=== PATIENT | female | born 1960 | race Caucasian/White ===

== ENCOUNTER 2020-02-01 14:06 | Observation (INO) | payer SELFPAY ==
--- NOTE | 2020-02-01 15:44 | PDOC.FPRHP ---
- History of Present Illness Chief Complaint: Dizzy/Vertigo - History PMHx: PSHx: FHx: Social: - Vital signs BP: 175/103 (Sitting), MAP: 127, Pulse: 96, Resp: 18 (Non-Labored), Temp: 97.6 (Oral), Pain: 0, O2 sat: 98 on (Room Air), Time: 02/01/2020 14:08. FMR H&P: Upper Level - Plan Date/Time: 02/01/20 1544 I, [], have evaluated this patient and agree with findings/plan as outlined by fall internship resident. Pertinent changes/additions are listed here.
--- NOTE | 2020-02-01 16:13 | PDOC.FPRHP ---
- History of Present Illness Chief Complaint: Dizziness History of Present Illness: 59yo F pmhx of DM presents following episode of dizziness. Pt was driving to work and became dizzy and developed nausea and vomiting. Went to [facility] ED and had normal head CT and received meclizine and phenergan. Transferred here for concern of stroke and to have MRI done. Was hyperglycemic at outside ED to 500, did not received insulin but received IVF. Gap was 17 at that time. Prior to admission here pt was found to have positive ketones and a continued anion gap of 14. She was feeling overall much better with resolution of her symptoms. Pt only takes metformin and glipizide at home for her DM but admits that it is poorly managed - is resistant to insulin tx. - Allergies/Adverse Reactions Allergies Allergy/AdvReac Type Severity Reaction Status Date / Time No Known Allergies Allergy Unverified 02/01/20 18:43 - History PMHx: Diabetes, HTN, CKD3, kidney stones PSHx: Hysterectomy, appendectomy FHx: Paternal: skin cancer, CAD Social: Denies alcohol, tobacco, drugs - Review of Systems General: denies: fever/chills, weight/appetite/sleep changes Eyes: denies: eye pain, vision changes ENT: denies: nasal congestion, rhinorrhea Respiratory: denies: cough, congestion, shortness of breath Cardiovascular: denies: chest pain, palpitation, edema Gastrointestinal: reports: nausea, vomiting. denies: diarrhea Genitourinary: denies: incontinence, dysuria, polyuria, discharge Skin: denies: rashes, lesions Musculoskeletal: denies: pain, stiffness Neurological: reports: other (dizziness). denies: numbness Psychological: denies: anxiety, depression - Vital signs BP: 175/103 (Sitting), MAP: 127, Pulse: 96, Resp: 18 (Non-Labored), Temp: 97.6 (Oral), Pain: 0, O2 sat: 98 on (Room Air), - Physical Exam Constitutional: NAD, awake, alert and oriented, well developed HEENT: PERRLA, EOMI -HEENT: no nystagmus Neck: supple, FROM Heart: RRR, normal S1/S2 Lungs: CTAB, no respiratory distress Abdomen: soft, non-tender, bowel sounds present Musculoskeletal: normal structure, ROM grossly normal Neurological: normal sensation Skin: no rash/lesions, capillary refill <2 seconds -Skin: very dry skin Psychiatric: normal mood and affect, good judgment and insight, intact recent and remote memory FMR H&P: Results - Labs Result Diagrams: 02/01/20 16:23 FMR H&P: A/P - Plan Severe Hyperglycemia - Hypovolemia - Likely was borderline DKA ealier today with significant hypoglycemia - Improved with fluids prior to arrival - Resolution of symptoms PRESSER HAND - 5u regular insulin in ED, SSI insulin ACHS - IVF @ 175 CVA vs TIA vs BPPV vs Hypovolemia/DKA - CVA highly unlikely based on resolution of sx - neuro checks - Description of sx makes TIA very unlikely - Negative Hints exam - Hypovolemia 2/2 to hyperglycemia/DKA most likely cause of vertigo - BPPV less likely with negative exam unless resolved - Negative Kremlin-Hallpike - Will continue to monitor UTI - rocephin - infection may have precipitated near DKA VTE: SCD Diet: CC IVF: LR @ 170ml Code: Full PCP: Dr. Jeffries Dispo: Admit to stroke. Control hyperglycemia and treat UTI as most likely source of dizziness. Pt with currently resolved sx. ELOS <48hr. FMR H&P: Upper Level - Plan Date/Time: 02/01/20 1611
[2020-02-01 17:06] LABS: Anion Gap 18 mmol/L (10-20); BUN (Urea Nitrogen) 12 mg/dL (9.8-20.1); Calc. Creatinine Clearance 0 mL/min (70-130); Calcium 8.8 mg/dL (7.8-10.44); Carbon Dioxide 21 mmol/L (22-29); Chloride 103 mmol/L (98-107); Glucose 322 mg/dL (70-105); Potassium 4.4 mmol/L (3.5-5.1); Sodium 138 mmol/L (136-145)
[2020-02-01] MEDS ORDERED: Insulin Regular 300 UNITS/3 ML VIAL ONE (17:45)
[2020-02-01 17:46] LABS: Actual Bicarbonate (HCO3a) 20.1 mEq/L (22-28); Base Excess (BEa) -3.8 mEq/L (-2.0 to +3.0); CO2 Tension 33.3 mmHg (35.0-45.0); Calcium, Ionized (arterial) 1.15 mmol/L (1.12-1.30); Carboxyhemoglobin (COHb) 0.4 gm% (0.0-3.0); Hemoglobin (Hb) 13.9 g/dL (12.0-16.0); O2 Tension (PaO2), arterial 85.7 mmHg (80.0-100.0); Potassium - ABG Lab 4.55 mmol/L (3.70-5.30)
[2020-02-01 17:47] LABS: ALV-art Gradient 22.405 mmHg (0-20); Puncture Site RRA
[2020-02-01 18:29] VITALS: BMI 26.9
[2020-02-01] MEDS ORDERED: Ondansetron ODT 4 MG TAB PO PRN (19:22)
[2020-02-01] MEDS ORDERED: Ondansetron PF 4 MG/2 ML Vial IVP PRN (19:22)
[2020-02-01] MEDS ORDERED: Dextrose 5% in Water 1,000 ML IV PRN (19:22)
[2020-02-01] MEDS ORDERED: Dextrose 50% Abboject 50 ML SYRINGE SLOW IVP PRN (19:22)
[2020-02-01] MEDS ORDERED: Lactated Ringer's 1,000 ML IV SCH (19:45)
[2020-02-01] MEDS ORDERED: Aspirin Chewable 81 MG TAB PO SCH (20:00)
[2020-02-01] MEDS ORDERED: Atorvastatin Calcium 40 MG TAB PO SCH (21:00)
[2020-02-01 21:47] LABS: Anion Gap 17 mmol/L (10-20); BUN (Urea Nitrogen) 14 mg/dL (9.8-20.1); Calc. Creatinine Clearance 69 mL/min (70-130); Calcium 8.6 mg/dL (7.8-10.44); Carbon Dioxide 24 mmol/L (22-29); Chloride 100 mmol/L (98-107); Glucose 285 mg/dL (70-105); Potassium 3.9 mmol/L (3.5-5.1); Sodium 137 mmol/L (136-145)
[2020-02-01] MEDS: HumaLOG 300 UNITS/3 ML VIAL SC PRN (22:20)
[2020-02-02] MEDS: HumaLOG 300 UNITS/3 ML VIAL SC PRN ×4 (00:09→18:44)
[2020-02-02] MEDS ORDERED: Insulin Glargine 10 UNITS in Pre-Filled Syringe 1 EACH SC SCH (00:30)
[2020-02-02] MEDS: Sodium Chloride 0.9% 1,000 ML IV SCH ×2 (01:28→07:10)
[2020-02-02 05:26] LABS: #Basophils 0.1 thou/uL (0.0-0.2); #Eosinphils 0.2 thou/uL (0.0-0.7); #Lymphocytes 4.6 thou/uL (1.20-3.40); #Monocytes 0.6 thou/uL (0.11-0.59); #Neutrophils 6.4 thou/uL (1.40-6.50); %Basophils 0.8 % (0.0-1.0); %Eosinophils 2.1 % (0.0-10.0); %Lymphocytes 38.4 % (21.0-51.0); %Monocytes 4.9 % (0.0-10.0); %Neutrophils 53.8 % (42.0-75.0); Hemoglobin 13.3 g/dL (12.0-16.0); Mean Corpuscular Hemoglobin 30.7 pg (27.0-31.0); Mean Corpuscular Volume 90.3 fL (78.0-98.0); Mean Platelet Volume 8.1 fL (7.4-10.4); Platelet Count 268 thou/uL (130-400); RBC Distribution Width 11.8 % (11.5-14.5); Red Blood Cell (RBC) Count 4.32 mill/uL (4.20-5.40); White Blood Cell (WBC) Count 11.9 thou/uL (4.8-10.8)
[2020-02-02 05:30] LABS: Hemoglobin A1c 13.9 % (4.0-6.0)
[2020-02-02 05:48] LABS: Anion Gap 16 mmol/L (10-20); BUN (Urea Nitrogen) 15 mg/dL (9.8-20.1); Calc. Creatinine Clearance 76 mL/min (70-130); Calcium 8.4 mg/dL (7.8-10.44); Carbon Dioxide 23 mmol/L (22-29); Cardiac Risk 8.1 (Less than 4.5); Chloride 102 mmol/L (98-107); Cholesterol 325 mg/dl (< 200 Desired); Glucose 208 mg/dL (70-105); HDL Cholesterol 40 mg/dL (>60 Neg Risk); Potassium 3.7 mmol/L (3.5-5.1); Sodium 137 mmol/L (136-145); Triglycerides 417 mg/dL (Less than 150)
--- NOTE | 2020-02-02 06:43 | PDOC.FM ---
- Subjective Subjective: Pt resting in bed this AM. No acute events overnight. - Objective Vital Signs & Weight: Vital Signs (12 hours) Temp Pulse Resp BP Pulse Ox 02/02/20 04:00 98.4 F 81 18 154/75 H 99 02/02/20 00:00 98.2 F 89 18 159/88 H 98 02/01/20 19:37 98.3 F 97 16 167/87 H 98 Weight Weight 75.614 kg I&O: 01/31/20 02/01/20 02/02/20 06:59 06:59 06:59 Intake Total 700 Balance 700 Result Diagrams: 02/02/20 04:33 02/02/20 04:33 Phys Exam - Physical Examination Constitutional: NAD HEENT: moist MMs Neck: supple Respiratory: no wheezing, no rales, no rhonchi, clear to auscultation bilateral Cardiovascular: RRR, no significant murmur, no rub Gastrointestinal: soft, non-tender, no distention, positive bowel sounds Neurological: non-focal, normal sensation, moves all 4 limbs Dx/Plan - Plan Plan: ##Intractable N/V and Vertigo 2/2 Hypovolemia 2/2 Hyperglycemia - Was in mild DKA yesterday, now AG is closed. Glucoses are now below 250s. - Pt has had resolution of symptoms - Was given lantus 10U last night - Will need to determine outpatient regimen for patient - A1C 13.6 - Do not believe that patient's symptoms were related to CVA vs. TIA as patient has not had abnormal neurological exam. Normal PE for me this AM. D/cd stroke protocol and NIH scale. ##HLD and Hypertriglyceridemia -Noted on lipid panel -Pt started on statin ##UTI - rocephin given in the ED - infection may have precipitated near DKA - Ucx pending - Will have to send pt on home abx VTE: SCD Diet: CC Code: FULL PCP: Dr. Jeffries Dispo as of 02/01: Have tighter control on BG this AM. Will discuss what patient's home regimen shall be with the team. Patient's symptoms have resolved.
[2020-02-02] MEDS ORDERED: metFORMIN 500 MG TAB PO SCH (09:00)
[2020-02-02] MEDS ORDERED: Insulin Glargine 5 UNITS in Pre-Filled Syringe 1 EACH SC SCH (09:00)
[2020-02-02] MEDS ORDERED: Aspirin 81 mg Enteric Coated Tablet PO SCH (09:00)
[2020-02-02] MEDS ORDERED: Cephalexin 250 MG CAP PO SCH ×2 (11:45→21:00)
[2020-02-02] MEDS ORDERED: cefTRIAXone\\ROCEPHIN 1 GM in Sodium Chloride 0.9% 100 ML IVPB SCH (12:00)
[2020-02-02 16:04] VITALS: BP 145/85; TEMP 98.8
[2020-02-02] MEDS ORDERED: NPH, Human Insulin Isophane 300 UNIT/3 ML VIAL SC SCH (17:00)
[2020-02-02] MEDS ORDERED: Insulin Glargine 4 UNITS in Pre-Filled Syringe SC SCH (17:00)
[2020-02-03] MEDS ORDERED: NPH, Human Insulin Isophane 300 UNIT/3 ML VIAL SC SCH (08:00)
--- NOTE | 2020-02-05 16:35 | DIS ---
DATE OF ADMISSION: 02/01/2020 DATE OF DISCHARGE: 02/02/2020 RESIDENT: Juanita Al DO ADMITTING ATTENDING: Miguelito Leon MD DISCHARGE ATTENDING: Miguelito Leon MD CONSULTS: None. PROCEDURES: Brain CT done on 01/31 at an outlying facility showed no intracranial hemorrhage or displaced calvarial fracture. PRIMARY DIAGNOSES: Severe hyperglycemia/hypovolemia, mild diabetic ketoacidosis, urinary tract infection. SECONDARY DIAGNOSES: None. DISCHARGE MEDICATIONS: 1. Losartan/hydrochlorothiazide 50 mg/12.5 mg two tablets p.o. daily. 2. Metformin 1000 mg p.o. b.i.d. 3. Glipizide 5 mg p.o. daily. 4. Aspirin 81 mg p.o. daily. 5. Keflex 500 mg p.o. b.i.d. for 5 days. 6. Atorvastatin 40 mg p.o. at bedtime. 7. NPH 8 units in the morning and 4 units in the evening. DISCONTINUED MEDICATIONS: 1. Metformin 500 b.i.d. 2. Losartan/hydrochlorothiazide 1 tablet daily. HISTORY OF PRESENT ILLNESS/HOSPITAL COURSE: This is a 59-year-old female with a past medical history of diabetes who presented with an episode of dizziness at work. She developed nausea and vomiting along with the dizziness. She went to [place] ED and had a normal head CT and received meclizine and phenergan. She was transferred here for concern of stroke and to have an MRI done. The patient was found to be hyperglycemic at outside ED with blood sugars in the 500s. She did not receive insulin, but received IV fluids. Her anion gap was 17 at that time. Prior to admission to here, the patient was found to have ketones and a continued slight anion gap of 14. Overall, she was feeling much better with resolution of her dizziness and nausea and vomiting. Her symptoms were decided to be due to mild DKA and not a stroke so an MRI was not warranted. Of note, the patient only takes metformin and glipizide at home for diabetes, but admits that it is poorly managed. The patient was also found to have a A1c of 13.9, suggesting the patient would definitely need to be on insulin outpatient. As the patient was self-pay, we started her on NPH with the dosing as shown above. We recommended close outpatient followup with her PCP as she will most likely need adjustments to her NPH dosing. She was also found to have UTI with mild sxs. She was sent home on keflex pending urine cultures. DISPOSITION: Stable. DISCHARGE INSTRUCTIONS: 1. Location: Home. 2. Diet: Carb consistent. 3. Activity as tolerated. 4. Follow up in 7 to 10 days with PCP. Job ID: [id number] MTDD
== END 2020-02-02 19:45 | disposition home or self-care (01) ==
LOC: ERS 14:06 → 2SE 16:14
PROVIDERS: ADMIT Family Medicine; ATTEND Family Medicine
DX: I12.9 Hypertensive chronic kidney disease with stage 1 through stage 4 chronic kidney disease, or unspecified chronic kidney disease (principal); E11.22 Type 2 diabetes mellitus with diabetic chronic kidney disease; E11.10 Type 2 diabetes mellitus with ketoacidosis without coma; E11.65 Type 2 diabetes mellitus with hyperglycemia; N18.30 Chronic kidney disease, stage 3 unspecified; E86.1 Hypovolemia; N39.0 Urinary tract infection, site not specified; E78.5 Hyperlipidemia, unspecified; E78.1 Pure hyperglyceridemia; Z79.84 Long term (current) use of oral hypoglycemic drugs
CPT/HCPCS: 36415; 36416; 36600; 80048; 80061; 82010; 82805; 83036; 85025; 96374; G0378; J1815

== ENCOUNTER 2021-09-06 12:39 | Inpatient (IN) | payer SELFPAY ==
[2021-09-06 13:51] LABS: #Basophils 0.1 thou/uL (0.0-0.2); #Eosinphils 0.1 thou/uL (0.0-0.7); #Lymphocytes 3.9 thou/uL (1.20-3.40); #Monocytes 0.6 thou/uL (0.11-0.59); #Neutrophils 7.2 thou/uL (1.40-6.50); %Basophils 0.5 % (0.0-1.0); %Monocytes 4.8 % (0.0-10.0); %Neutrophils 60.8 % (42.0-75.0); Hemoglobin 15.5 g/dL (12.0-16.0); Mean Corpuscular HGB CONC 32.8 g/dL (32.0-36.0); Mean Corpuscular Hemoglobin 29.8 pg (27.0-31.0); Mean Platelet Volume 8.2 fL (7.4-10.4); Platelet Count 310 thou/uL (130-400); RBC Distribution Width 11.9 % (11.5-14.5); Red Blood Cell (RBC) Count 5.19 mill/uL (4.20-5.40); White Blood Cell (WBC) Count 11.8 thou/uL (4.8-10.8)
[2021-09-06] MEDS ORDERED: Labetalol HCl 100 MG/20 ML VIAL ONE (14:07)
[2021-09-06] MEDS ORDERED: Aspirin 325 MG TAB ONE (14:07)
[2021-09-06 14:11] LABS: ALT (SGPT) 11 U/L (8-55); AST (SGOT) 11 U/L (5-34); Albumin 4.1 g/dL (3.5-5.0); Alkaline Phosphatase 123 U/L (40-110); Anion Gap 23 mmol/L (10-20); BUN (Urea Nitrogen) 19 mg/dL (9.8-20.1); Bilirubin, Total 0.7 mg/dL (0.2-1.2); Calc. Creatinine Clearance 0 mL/min (70-130); Calcium 10.2 mg/dL (7.8-10.44); Carbon Dioxide 20 mmol/L (22-29); Chloride 97 mmol/L (98-107); Estimated GFR 43; Globulin 3.9 g/dL (2.4-3.5); Glucose 447 mg/dL (70-105); Potassium 4.5 mmol/L (3.5-5.1); Sodium 135 mmol/L (136-145)
[2021-09-06 14:35] LABS: INR-International Normal Ratio 0.9
[2021-09-06 14:36] LABS: PTT 21.4 sec (22.9-36.1)
[2021-09-06 14:40] LABS: Magnesium 1.5 mg/dL (1.6-2.6)
[2021-09-06 14:44] LABS: Actual Bicarbonate (HCO3v) 25 mEq/L (22-28); Base Excess -0.6 mEq/L (-2.0 to +3.0); Calcium, Ionized (venous) 1.15 mmol/L (1.16-1.32); Chloride (VBG) 98 mmol/L (98-106); Hemoglobin (Hb) 15.6 g/dL (11.7-16.0); Potassium (VBG) 3.91 mmol/L (3.70-5.30); pH (venous) 7.38 (7.32-7.43)
[2021-09-06] MEDS ORDERED: Insulin Regular 300 UNITS/3 ML VIAL ONE (14:57)
[2021-09-06] MEDS ORDERED: Magnesium 2 GM/50 ML BAG (IN WATER) ONE (14:58)
[2021-09-06 17:07] VITALS: BMI 27.6
[2021-09-06] MEDS ORDERED: Acetaminophen 325 MG TAB PO PRN (17:30)
[2021-09-06] MEDS ORDERED: Ondansetron ODT 4 MG TAB SL PRN (17:30)
[2021-09-06] MEDS ORDERED: Ondansetron PF 4 MG/2 ML Vial IVP PRN (17:30)
[2021-09-06 17:37] LABS: Troponin I Less than 0.010 ng/mL (< 0.028)
[2021-09-06] MEDS ORDERED: Dextrose 5% in Water 1,000 ML IV PRN (17:46)
[2021-09-06] MEDS ORDERED: Dextrose 50% Abboject 50 ML SYRINGE SLOW IVP PRN (17:46)
[2021-09-06] MEDS ORDERED: Senokot S 8.6-50 MG TAB PO PRN (17:51)
[2021-09-06] MEDS ORDERED: Magnesium Sulfate In Water 4 GM in Premix Bag 1 BAG IVPB SCH (18:30)
[2021-09-06 18:35] LABS: Hemoglobin A1c Greater than 14.0 % (4.0-6.0)
[2021-09-06 19:16] LABS: Troponin I Less than 0.010 ng/mL (< 0.028)
[2021-09-06] MEDS: Sodium Chloride 0.9% 1,000 ML IV SCH (19:16)
[2021-09-06] MEDS: Atorvastatin Calcium 40 MG TAB PO SCH ×2 (20:30→20:31)
[2021-09-06] MEDS: HumaLOG 300 UNITS/3 ML VIAL SC PRN (20:30)
[2021-09-06] MEDS: Insulin Glargine 30 UNITS/0.3 ML VIAL SC SCH (20:31)
[2021-09-07 05:10] LABS: #Basophils 0.1 thou/uL (0.0-0.2); #Eosinphils 0.3 thou/uL (0.0-0.7); #Lymphocytes 5.8 thou/uL (1.20-3.40); #Monocytes 0.7 thou/uL (0.11-0.59); #Neutrophils 5.4 thou/uL (1.40-6.50); %Basophils 0.8 % (0.0-1.0); %Eosinophils 2.1 % (0.0-10.0); %Lymphocytes 47.3 % (21.0-51.0); %Monocytes 5.6 % (0.0-10.0); %Neutrophils 44.2 % (42.0-75.0); Hemoglobin 14.2 g/dL (12.0-16.0); Mean Corpuscular HGB CONC 32.8 g/dL (32.0-36.0); Mean Corpuscular Volume 91.3 fL (78.0-98.0); Mean Platelet Volume 8.2 fL (7.4-10.4); Platelet Count 277 thou/uL (130-400); RBC Distribution Width 11.9 % (11.5-14.5); Red Blood Cell (RBC) Count 4.74 mill/uL (4.20-5.40); White Blood Cell (WBC) Count 12.3 thou/uL (4.8-10.8)
[2021-09-07 05:27] LABS: Anion Gap 14 mmol/L (10-20); BUN (Urea Nitrogen) 17 mg/dL (9.8-20.1); Calc. Creatinine Clearance 68 mL/min (70-130); Calcium 9.2 mg/dL (7.8-10.44); Carbon Dioxide 24 mmol/L (22-29); Cardiac Risk 8.6 (Less than 4.5); Chloride 103 mmol/L (98-107); Cholesterol 354 mg/dl (< 200 Desired); Estimated GFR 65; Glucose 203 mg/dL (70-105); HDL Cholesterol 41 mg/dL (>60 Neg Risk); Magnesium 1.5 mg/dL (1.6-2.6); Potassium 3.5 mmol/L (3.5-5.1); Sodium 137 mmol/L (136-145); Triglycerides 463 mg/dL (Less than 150)
[2021-09-07] MEDS ORDERED: Electrolyte Replacement Protocol 1 EACH FS SCH (05:45)
[2021-09-07] MEDS ORDERED: Acetaminophen 325 MG TAB PO PRN (06:40)
[2021-09-07] MEDS ORDERED: EPINEPHrine 1 MG/ML AMP ONE (08:12)
[2021-09-07] MEDS ORDERED: diphenhydrAMINE 50 MG/ML VIAL ONE (08:12)
[2021-09-07] MEDS ORDERED: EPINEPHrine 1 MG/10 ML Abboject SYRINGE ONE ×2 (08:12→08:31)
[2021-09-07] MEDS ORDERED: EPINEPHrine 1 mg/ml MDV (1ml Charge) IM PRN (08:28)
[2021-09-07] MEDS ORDERED: methylPREDNISolone Sod Succ 40 MG VIAL ONE (08:32)
[2021-09-07] MEDS: Famotidine/PF 20 mg/2ml Vial SLOW IVP SCH ×2 (08:34→21:41)
[2021-09-07] MEDS: methylPREDNISolone Sod Succ/PF 125 MG/2 ML VIAL IVP SCH (08:34)
[2021-09-07] MEDS ORDERED: Magnesium 2 GM/50 ML(in water) 2 GM in Premix Bag 1 BAG IVPB SCH (09:00)
[2021-09-07] MEDS ORDERED: Aspirin 81 mg Enteric Coated Tablet PO SCH (09:00)
[2021-09-07] MEDS ORDERED: Potassium Chloride 20 MEQ TAB PO SCH (09:00)
[2021-09-07] MEDS: Sodium Chloride 0.9% 1,000 ML IV SCH (11:13)
[2021-09-07] MEDS: Aspirin 81 mg Enteric Coated Tablet PO SCH (11:14)
[2021-09-07] MEDS: HumaLOG 300 UNITS/3 ML VIAL SC PRN ×3 (12:18→21:42)
[2021-09-07] MEDS ORDERED: Iopamidol 370 76% 100 ML VIAL ONE (15:16)
[2021-09-07 17:08] LABS: Free T4 (Free Thyroxine) 1.17 ng/dL (0.70-1.48); Thyroid Stimulating Hormone 1.5993 uIU/mL (0.35-4.94)
[2021-09-07 18:30] LABS: Hemoglobin A1c Greater than 14.0 % (4.0-6.0)
[2021-09-07] MEDS: Enoxaparin Sodium 40 MG/0.4 ML SYRINGE SC SCH (21:41)
[2021-09-07] MEDS: Insulin Glargine 30 UNITS/0.3 ML VIAL SC SCH (21:41)
[2021-09-08 03:52] LABS: #Lymphocytes 2.8 thou/uL (1.20-3.40); #Monocytes 0.8 thou/uL (0.11-0.59); #Neutrophils 12.9 thou/uL (1.40-6.50); %Basophils 0.2 % (0.0-1.0); %Eosinophils 0.1 % (0.0-10.0); %Lymphocytes 17.2 % (21.0-51.0); %Monocytes 4.7 % (0.0-10.0); %Neutrophils 77.9 % (42.0-75.0); Hemoglobin 14.1 g/dL (12.0-16.0); Mean Corpuscular HGB CONC 33.6 g/dL (32.0-36.0); Mean Corpuscular Hemoglobin 30.9 pg (27.0-31.0); Mean Corpuscular Volume 91.8 fL (78.0-98.0); Mean Platelet Volume 8.2 fL (7.4-10.4); Platelet Count 286 thou/uL (130-400); RBC Distribution Width 11.9 % (11.5-14.5); Red Blood Cell (RBC) Count 4.55 mill/uL (4.20-5.40); White Blood Cell (WBC) Count 16.5 thou/uL (4.8-10.8)
[2021-09-08 04:10] LABS: Anion Gap 17 mmol/L (10-20); BUN (Urea Nitrogen) 19 mg/dL (9.8-20.1); Calc. Creatinine Clearance 60 mL/min (70-130); Calcium 9.3 mg/dL (7.8-10.44); Carbon Dioxide 22 mmol/L (22-29); Chloride 102 mmol/L (98-107); Estimated GFR 55; Glucose 375 mg/dL (70-105); Potassium 4.5 mmol/L (3.5-5.1); Sodium 136 mmol/L (136-145)
[2021-09-08] MEDS: HumaLOG 300 UNITS/3 ML VIAL SC PRN ×4 (07:19→21:13)
[2021-09-08] MEDS: methylPREDNISolone Sod Succ/PF 125 MG/2 ML VIAL IVP SCH (08:53)
[2021-09-08] MEDS: Famotidine/PF 20 mg/2ml Vial SLOW IVP SCH ×2 (08:53→21:12)
[2021-09-08] MEDS: Aspirin 81 mg Enteric Coated Tablet PO SCH (08:53)
[2021-09-08 17:46] LABS: Glucose 539 mg/dL (70-105)
[2021-09-08] MEDS ORDERED: Insulin Glargine 30 UNITS/0.3 ML VIAL SC SCH (21:00)
[2021-09-08] MEDS: Atorvastatin Calcium 40 MG TAB PO SCH ×2 (21:12→21:13)
[2021-09-08] MEDS: Enoxaparin Sodium 40 MG/0.4 ML SYRINGE SC SCH (21:13)
[2021-09-09] MEDS: HumaLOG 300 UNITS/3 ML VIAL SC PRN ×2 (07:01→16:54)
[2021-09-09] MEDS: Famotidine/PF 20 mg/2ml Vial SLOW IVP SCH ×2 (08:41→22:47)
[2021-09-09] MEDS: Aspirin 81 mg Enteric Coated Tablet PO SCH (08:41)
[2021-09-09] MEDS ORDERED: Insulin Glargine 30 UNITS/0.3 ML VIAL SC SCH ×2 (21:00)
[2021-09-09] MEDS: Enoxaparin Sodium 40 MG/0.4 ML SYRINGE SC SCH (22:48)
[2021-09-10] MEDS: HumaLOG 300 UNITS/3 ML VIAL SC PRN ×2 (06:07→11:04)
[2021-09-10] MEDS: Famotidine/PF 20 mg/2ml Vial SLOW IVP SCH (08:53)
[2021-09-10] MEDS: Aspirin 81 mg Enteric Coated Tablet PO SCH (08:53)
[2021-09-10 11:34] VITALS: BP 134/81; TEMP 96.7
== END 2021-09-10 15:35 | disposition home or self-care (01) | DRG 64 ==
LOC: ERS 12:39 → NEURO 15:12 → IMCU/EMU 09-07 08:46 → OBSVTOIN 09-07 10:14 → NEURO 09-09 19:38
PROVIDERS: ADMIT Family Medicine; ATTEND Family Medicine
PROC: 8E0ZXY6 Isolation (ICD-10-PCS; principal; 2021-09-07)
DX: I63.9 Cerebral infarction, unspecified (principal); R29.702 NIHSS score 2; U07.1 COVID-19; G81.91 Hemiplegia, unspecified affecting right dominant side; E87.2 Acidosis; N17.9 Acute kidney failure, unspecified; E87.1 Hypo-osmolality and hyponatremia; T88.6XXA Anaphylactic reaction due to adverse effect of correct drug or medicament properly administered, initial encounter; T50.8X5A Adverse effect of diagnostic agents, initial encounter; E11.9 Type 2 diabetes mellitus without complications; I10 Essential (primary) hypertension; E83.42 Hypomagnesemia; E04.1 Nontoxic single thyroid nodule; R29.810 Facial weakness; R47.01 Aphasia; Z79.899 Other long term (current) drug therapy; Z91.041 Radiographic dye allergy status; Z79.82 Long term (current) use of aspirin; Z79.84 Long term (current) use of oral hypoglycemic drugs; Z79.4 Long term (current) use of insulin; Z86.73 Personal history of transient ischemic attack (TIA), and cerebral infarction without residual deficits; Z82.3 Family history of stroke; Z82.49 Family history of ischemic heart disease and other diseases of the circulatory system; Z90.710 Acquired absence of both cervix and uterus
CPT/HCPCS: 36415; 36416; 70450; 70491; 70551; 71045; 76536; 80048; 80053; 80061; 82010; 82805; 83036; 83735; 84100; 84439; 84443; 84481; 84484; 85025; 85610; 85730; 93005; 93010; 93306; 93880; 93970; 96361; 96365; 96375; G0378; J0171; J1200; J1650; J1815; J2930; J3475; J7050; Q9967; S0028; U0003; U0005

== ENCOUNTER 2022-12-23 15:53 | Inpatient (IN) | payer SELFPAY ==
[2022-12-23 16:46] LABS: #Basophils 0.1 thou/uL (0.0-0.2); #Eosinphils 0.4 thou/uL (0.0-0.7); #Monocytes 0.7 thou/uL (0.11-0.59); #Neutrophils 7.6 thou/uL (1.40-6.50); %Basophils 0.6 % (0.0-1.0); %Eosinophils 3.4 % (0.0-10.0); %Lymphocytes 28.5 % (21.0-51.0); %Monocytes 5.5 % (0.0-10.0); %Neutrophils 61.7 % (42.0-75.0); Hematocrit 40.1 % (36.0-47.0); Hemoglobin 13.5 g/dL (12.0-16.0); Mean Corpuscular HGB CONC 33.7 g/dL (32.0-36.0); Mean Corpuscular Hemoglobin 29.6 pg (27.0-31.0); Mean Corpuscular Volume 87.9 fl (78.0-98.0); Mean Platelet Volume 10.1 fL (7.4-10.4); Platelet Count 372 10x3/uL (130-400); RBC Distribution Width 12.6 % (11.5-14.5); Red Blood Cell (RBC) Count 4.56 mill/uL (4.20-5.40); White Blood Cell (WBC) Count 12.3 10x3/uL (4.8-10.8)
[2022-12-23 17:08] LABS: ALT (SGPT) 12 U/L (8-55); AST (SGOT) 12 U/L (5-34); Albumin 4.8 g/dL (3.5-5.0); Alkaline Phosphatase 97 U/L (40-110); Anion Gap 16 mmol/L (10-20); BUN (Urea Nitrogen) 14 mg/dL (9.8-20.1); Bilirubin, Total 0.5 mg/dL (0.2-1.2); Calc. Creatinine Clearance 0 mL/min (70-130); Calcium 10.2 mg/dL (7.8-10.44); Carbon Dioxide 25 mmol/L (22-29); Chloride 102 mmol/L (98-107); Estimated GFR 47; Globulin 3.1 g/dL (2.4-3.5); Glucose 247 mg/dL (70-105); Lipase 22 U/L (8-78); Potassium 4.4 mmol/L (3.5-5.1); Protein, Total 7.9 g/dL (6.0-8.3); Sodium 139 mmol/L (136-145)
[2022-12-23 17:15] LABS: Troponin I Less than 0.010 ng/mL (< 0.028)
[2022-12-23] MEDS ORDERED: Dextrose 50% Abboject 50 ML SYRINGE SLOW IVP PRN (18:40)
[2022-12-23] MEDS ORDERED: Dextrose 5% in Water 1,000 ML IV PRN (18:40)
[2022-12-23] MEDS ORDERED: Glucagon 1 MG/ML KIT IM PRN (18:40)
[2022-12-23] MEDS ORDERED: Calcium Carbonate 500 MG ChewTAB PO PRN (18:41)
[2022-12-23] MEDS ORDERED: Acetaminophen 325 MG TAB PO PRN (18:41)
[2022-12-23] MEDS ORDERED: Ondansetron PF 4 MG/2 ML Vial IVP PRN (18:41)
[2022-12-23] MEDS ORDERED: Ondansetron ODT 4 MG TAB PO PRN (18:41)
[2022-12-23] MEDS ORDERED: hydrALAZINE 20 MG/ML VIAL SLOW IVP PRN (18:43)
[2022-12-23] MEDS ORDERED: Aspirin 325 mg Enteric Coated Tablet PO SCH (19:30)
[2022-12-23] MEDS ORDERED: Atorvastatin Calcium 40 MG TAB PO SCH (21:00)
[2022-12-23] MEDS ORDERED: Famotidine 20 MG TAB PO SCH (21:00)
[2022-12-23] MEDS ORDERED: Heparin 5,000 UNITS/ML VIAL SC SCH (21:00)
[2022-12-23] MEDS: Insulin Regular 300 UNITS/3 ML VIAL SC PRN (22:44)
[2022-12-24 00:56] VITALS: BMI 25.9
[2022-12-24 05:52] LABS: #Basophils 0.1 thou/uL (0.0-0.2); #Eosinphils 0.5 thou/uL (0.0-0.7); #Monocytes 0.6 thou/uL (0.11-0.59); #Neutrophils 4.6 thou/uL (1.40-6.50); %Basophils 0.8 % (0.0-1.0); %Eosinophils 4.5 % (0.0-10.0); %Lymphocytes 44.3 % (21.0-51.0); %Neutrophils 44.2 % (42.0-75.0); Hematocrit 36.4 % (36.0-47.0); Hemoglobin 12.1 g/dL (12.0-16.0); Mean Corpuscular HGB CONC 33.2 g/dL (32.0-36.0); Mean Corpuscular Volume 90.1 fl (78.0-98.0); Platelet Count 327 10x3/uL (130-400); RBC Distribution Width 12.6 % (11.5-14.5); Red Blood Cell (RBC) Count 4.04 mill/uL (4.20-5.40); White Blood Cell (WBC) Count 10.3 10x3/uL (4.8-10.8)
[2022-12-24 05:58] LABS: Hemoglobin A1c 9.6 % (4.0-6.0)
[2022-12-24 06:18] LABS: Anion Gap 11 mmol/L (10-20); BUN (Urea Nitrogen) 13 mg/dL (9.8-20.1); Calc. Creatinine Clearance 52 mL/min (70-130); Calcium 9.4 mg/dL (7.8-10.44); Carbon Dioxide 28 mmol/L (22-29); Cardiac Risk 7.8 (Less than 4.5); Chloride 104 mmol/L (98-107); Cholesterol 310 mg/dl (< 200 Desired); Estimated GFR 52; Glucose 141 mg/dL (70-105); HDL Cholesterol 40 mg/dL (>60 Neg Risk); LDL Cholesterol, Calculated 192 mg/dL; Magnesium 1.6 mg/dL (1.6-2.6); Potassium 3.9 mmol/L (3.5-5.1); Sodium 139 mmol/L (136-145); Triglycerides 389 mg/dL (Less than 150)
[2022-12-24] MEDS ORDERED: Losartan 25 MG TAB PO SCH ×2 (09:00)
[2022-12-24] MEDS: glipiZIDE 5 MG TAB PO SCH (10:03)
[2022-12-24] MEDS: Fenofibrate 48 MG TAB PO SCH (10:03)
[2022-12-24] MEDS: Aspirin 81 mg Enteric Coated Tablet PO SCH (10:03)
[2022-12-24] MEDS: Triamcinolone 0.1% Cream 15 GM TUBE TOP SCH ×2 (10:04→20:31)
[2022-12-24] MEDS: Atorvastatin Calcium 40 MG TAB PO SCH (20:31)
[2022-12-24] MEDS ORDERED: Famotidine 20 MG TAB PO SCH (21:00)
[2022-12-24] MEDS: Insulin Regular 300 UNITS/3 ML VIAL SC PRN (21:31)
[2022-12-24] MEDS ORDERED: diphenhydrAMINE 25 MG CAP PO SCH (22:00)
[2022-12-25 04:21] LABS: Anion Gap 13 mmol/L (10-20); BUN (Urea Nitrogen) 16 mg/dL (9.8-20.1); Calc. Creatinine Clearance 52 mL/min (70-130); Calcium 9.5 mg/dL (7.8-10.44); Carbon Dioxide 27 mmol/L (22-29); Chloride 103 mmol/L (98-107); Estimated GFR 51; Glucose 202 mg/dL (70-105); Potassium 4.1 mmol/L (3.5-5.1); Sodium 139 mmol/L (136-145)
[2022-12-25] MEDS: Insulin Regular 300 UNITS/3 ML VIAL SC PRN ×3 (05:55→20:04)
[2022-12-25] MEDS: Triamcinolone 0.1% Cream 15 GM TUBE TOP SCH ×2 (09:10→20:04)
[2022-12-25] MEDS: glipiZIDE 5 MG TAB PO SCH (09:14)
[2022-12-25] MEDS: Aspirin 81 mg Enteric Coated Tablet PO SCH (09:14)
[2022-12-25] MEDS: Fenofibrate 48 MG TAB PO SCH (09:14)
[2022-12-25] MEDS ORDERED: Insulin Glargine 30 UNITS/0.3 ML VIAL SC SCH ×2 (12:37→12:45)
[2022-12-25] MEDS ORDERED: PROPOFOL 20 ML ONE (13:43)
[2022-12-25] MEDS ORDERED: PROPOFOL 200 MG/20 ML VIAL ONE (13:48)
[2022-12-25] MEDS: Melatonin 3 MG TAB PO PRN ×2 (20:05)
[2022-12-25] MEDS: Atorvastatin Calcium 40 MG TAB PO SCH (20:05)
[2022-12-26] MEDS: glipiZIDE 5 MG TAB PO SCH (08:45)
[2022-12-26] MEDS: Insulin Glargine 30 UNITS/0.3 ML VIAL SC SCH (08:47)
[2022-12-26] MEDS: Aspirin 81 mg Enteric Coated Tablet PO SCH (08:49)
[2022-12-26] MEDS: Fenofibrate 48 MG TAB PO SCH (08:50)
[2022-12-26] MEDS ORDERED: Losartan 25 MG TAB PO SCH (09:00)
[2022-12-26] MEDS: Triamcinolone 0.1% Cream 15 GM TUBE TOP SCH ×2 (09:38→20:51)
[2022-12-26] MEDS: Atorvastatin Calcium 40 MG TAB PO SCH (20:51)
[2022-12-26] MEDS: Melatonin 3 MG TAB PO PRN (20:51)
[2022-12-27 04:11] LABS: #Basophils 0.1 thou/uL (0.0-0.2); #Eosinphils 0.6 thou/uL (0.0-0.7); #Monocytes 0.7 thou/uL (0.11-0.59); #Neutrophils 6.6 thou/uL (1.40-6.50); %Basophils 0.5 % (0.0-1.0); %Eosinophils 4.7 % (0.0-10.0); %Lymphocytes 33.3 % (21.0-51.0); %Monocytes 5.7 % (0.0-10.0); %Neutrophils 55.5 % (42.0-75.0); Hematocrit 37.4 % (36.0-47.0); Hemoglobin 12.5 g/dL (12.0-16.0); Mean Corpuscular HGB CONC 33.4 g/dL (32.0-36.0); Mean Corpuscular Volume 89.9 fl (78.0-98.0); Mean Platelet Volume 9.8 fL (7.4-10.4); Platelet Count 347 10x3/uL (130-400); RBC Distribution Width 12.5 % (11.5-14.5); Red Blood Cell (RBC) Count 4.16 mill/uL (4.20-5.40); White Blood Cell (WBC) Count 11.8 10x3/uL (4.8-10.8)
[2022-12-27 04:44] LABS: Anion Gap 16 mmol/L (10-20); BUN (Urea Nitrogen) 13 mg/dL (9.8-20.1); Calc. Creatinine Clearance 56 mL/min (70-130); Calcium 9.3 mg/dL (7.8-10.44); Carbon Dioxide 21 mmol/L (22-29); Chloride 106 mmol/L (98-107); Estimated GFR 57; Glucose 152 mg/dL (70-105); Potassium 3.9 mmol/L (3.5-5.1); Sodium 139 mmol/L (136-145)
[2022-12-27] MEDS: Aspirin 81 mg Enteric Coated Tablet PO SCH (08:33)
[2022-12-27] MEDS: glipiZIDE 5 MG TAB PO SCH (08:33)
[2022-12-27] MEDS: Fenofibrate 48 MG TAB PO SCH (08:33)
[2022-12-27] MEDS: Insulin Glargine 30 UNITS/0.3 ML VIAL SC SCH (08:34)
[2022-12-27] MEDS: Triamcinolone 0.1% Cream 15 GM TUBE TOP SCH (08:36)
[2022-12-27] MEDS ORDERED: Losartan 25 MG TAB PO SCH (09:00)
[2022-12-27 12:07] VITALS: TEMP 97.7
[2022-12-27 15:30] VITALS: BP 155/89
== END 2022-12-27 15:40 | disposition home or self-care (01) | DRG 65 ==
LOC: ERS 15:53 → ERHOLD 18:25 → 2SE 21:19
PROVIDERS: ADMIT Internal Medicine; ATTEND Family Medicine
PROC: B24BZZ4 Ultrasonography of Heart with Aorta, Transesophageal (ICD-10-PCS; principal; 2022-12-25)
DX: I63.9 Cerebral infarction, unspecified (principal); G81.94 Hemiplegia, unspecified affecting left nondominant side; Z79.4 Long term (current) use of insulin; Z91.041 Radiographic dye allergy status; Z79.899 Other long term (current) drug therapy; Z90.49 Acquired absence of other specified parts of digestive tract; Z90.710 Acquired absence of both cervix and uterus; Z79.82 Long term (current) use of aspirin; Z82.49 Family history of ischemic heart disease and other diseases of the circulatory system; I12.9 Hypertensive chronic kidney disease with stage 1 through stage 4 chronic kidney disease, or unspecified chronic kidney disease; N18.30 Chronic kidney disease, stage 3 unspecified; E11.22 Type 2 diabetes mellitus with diabetic chronic kidney disease; L29.9 Pruritus, unspecified; E04.1 Nontoxic single thyroid nodule; R47.1 Dysarthria and anarthria; I08.1 Rheumatic disorders of both mitral and tricuspid valves
CPT/HCPCS: 36415; 36416; 70450; 70551; 71045; 80048; 80053; 80061; 83036; 83690; 83735; 84443; 84484; 85025; 93005; 93306; 93312; 93880; J1644; J1650; J1815; J2704

== ENCOUNTER 2023-03-04 11:23 | Observation (INO) | payer SELFPAY ==
[2023-03-04 12:26] LABS: #Basophils 0.1 thou/uL (0.0-0.2); #Eosinphils 0.1 thou/uL (0.0-0.7); #Monocytes 1.1 thou/uL (0.11-0.59); #Neutrophils 16.2 thou/uL (1.40-6.50); %Basophils 0.4 % (0.0-1.0); %Eosinophils 0.6 % (0.0-10.0); %Lymphocytes 21.9 % (21.0-51.0); %Monocytes 4.7 % (0.0-10.0); Hemoglobin 13.2 g/dL (12.0-16.0); Mean Corpuscular HGB CONC 32.2 g/dL (32.0-36.0); Mean Corpuscular Hemoglobin 28.7 pg (27.0-31.0); Mean Corpuscular Volume 89.1 fl (78.0-98.0); Mean Platelet Volume 10.4 fL (7.4-10.4); Platelet Count 368 10x3/uL (130-400); RBC Distribution Width 12.8 % (11.5-14.5); White Blood Cell (WBC) Count 22.5 10x3/uL (4.8-10.8)
[2023-03-04 12:48] LABS: ALT (SGPT) 19 U/L (8-55); AST (SGOT) 16 U/L (5-34); Albumin 4.4 g/dL (3.5-5.0); Alkaline Phosphatase 74 U/L (40-110); Anion Gap 18 mmol/L (10-20); BUN (Urea Nitrogen) 26 mg/dL (9.8-20.1); Bilirubin, Total 0.7 mg/dL (0.2-1.2); Calc. Creatinine Clearance 0 mL/min (70-130); Carbon Dioxide 21 mmol/L (22-29); Chloride 104 mmol/L (98-107); Estimated GFR 35; Globulin 3.1 g/dL (2.4-3.5); Glucose 167 mg/dL (70-105); Potassium 3.9 mmol/L (3.5-5.1); Protein, Total 7.5 g/dL (6.0-8.3); Sodium 139 mmol/L (136-145)
[2023-03-04 12:55] LABS: Bilirubin Negative (Negative); Blood, Urine 1+ (Negative); CAUTI Indications for Culture Alt mental st,lethar; Clarity Turbid (Clear); Glucose, Urine (Dipstick) Normal (Negative); Ketone, Urine Negative (Negative); Leukocyte 25 Leu/uL (Negative); Nitrite Negative (Negative); Protein, Urine (Dipstick) 50 mg/dL (Neg-Trace); Urobilinogen Normal mg/dL (Less than 2); WBC/HPF 0-3 HPF (0-3); pH, Urine 5.5 (5.0-9.0)
[2023-03-04 12:58] LABS: Bacteria/HPF 1+ HPF (None Seen)
[2023-03-04 12:59] LABS: Urine Culture Reflex No No
[2023-03-04 13:05] LABS: Troponin I Less than 0.010 ng/mL (< 0.028)
[2023-03-04] MEDS ORDERED: Piperacillin/Tazobactam 4.5 GM VIAL ONE (14:01)
[2023-03-04] MEDS ORDERED: Sodium Chloride 0.9% 100 ML ONE (14:01)
[2023-03-04] MEDS ORDERED: Senokot S 8.6-50 MG TAB PO PRN (14:51)
[2023-03-04] MEDS ORDERED: Acetaminophen 325 MG TAB PO PRN (14:51)
[2023-03-04] MEDS ORDERED: Glucagon 1 MG/ML KIT IM PRN (14:55)
[2023-03-04] MEDS ORDERED: Dextrose 50% Abboject 50 ML SYRINGE SLOW IVP PRN (14:55)
[2023-03-04] MEDS ORDERED: HumaLOG 300 UNITS/3 ML VIAL SC PRN (14:55)
[2023-03-04] MEDS ORDERED: Dextrose 5% in Water 1,000 ML IV PRN (14:55)
[2023-03-04] MEDS ORDERED: Polyethylene Glycol 3350 17 GM Packet PO PRN (14:56)
[2023-03-04] MEDS ORDERED: Melatonin 3 MG TAB PO PRN (19:52)
[2023-03-04] MEDS: Sodium Chloride 0.9% 1,000 ML IV SCH (21:19)
[2023-03-05 00:36] VITALS: BMI 24.8
[2023-03-05 04:02] LABS: #Basophils 0.1 thou/uL (0.0-0.2); #Eosinphils 0.3 thou/uL (0.0-0.7); #Monocytes 0.9 thou/uL (0.11-0.59); #Neutrophils 8.8 thou/uL (1.40-6.50); %Basophils 0.4 % (0.0-1.0); %Eosinophils 2.1 % (0.0-10.0); %Lymphocytes 32.7 % (21.0-51.0); %Monocytes 5.8 % (0.0-10.0); %Neutrophils 58.7 % (42.0-75.0); Hemoglobin 11.2 g/dL (12.0-16.0); Mean Corpuscular Hemoglobin 28.5 pg (27.0-31.0); Mean Corpuscular Volume 89.1 fl (78.0-98.0); Mean Platelet Volume 10.4 fL (7.4-10.4); Platelet Count 306 10x3/uL (130-400); RBC Distribution Width 12.7 % (11.5-14.5); Red Blood Cell (RBC) Count 3.93 mill/uL (4.20-5.40)
[2023-03-05 04:29] LABS: Anion Gap 13 mmol/L (10-20); BUN (Urea Nitrogen) 20 mg/dL (9.8-20.1); Calc. Creatinine Clearance 42 mL/min (70-130); Calcium 8.8 mg/dL (7.8-10.44); Carbon Dioxide 21 mmol/L (22-29); Chloride 106 mmol/L (98-107); Estimated GFR 42; Glucose 140 mg/dL (70-105); Potassium 3.4 mmol/L (3.5-5.1); Sodium 137 mmol/L (136-145)
[2023-03-05] MEDS ORDERED: Fenofibrate 48 MG TAB PO SCH (09:00)
[2023-03-05] MEDS ORDERED: cefTRIAXone\\ROCEPHIN 1 GM in Sodium Chloride 0.9% 100 ML IVPB SCH (09:00)
[2023-03-05] MEDS ORDERED: Enoxaparin 30 MG (0.3 mL) SYRINGE SC SCH (09:00)
[2023-03-05] MEDS ORDERED: Aspirin 81 mg Enteric Coated Tablet PO SCH (09:00)
[2023-03-05] MEDS: Sodium Chloride 0.9% 1,000 ML IV SCH (09:39)
[2023-03-05] MEDS ORDERED: Enoxaparin 40 MG (0.4 mL) SYRINGE SC SCH (10:45)
[2023-03-05 12:23] VITALS: BP 116/73; TEMP 98.4
[2023-03-06] MEDS ORDERED: Enoxaparin 40 MG (0.4 mL) SYRINGE SC SCH (09:00)
== END 2023-03-05 15:56 | disposition home or self-care (01) ==
LOC: ERS 11:23 → ERHOLD 14:53 → MSONC 18:31
PROVIDERS: ADMIT Hospitalist; ATTEND Hospitalist
DX: R53.1 Weakness (principal); E11.9 Type 2 diabetes mellitus without complications; E78.5 Hyperlipidemia, unspecified; I10 Essential (primary) hypertension; N17.9 Acute kidney failure, unspecified; Z86.16 Personal history of COVID-19; Z91.041 Radiographic dye allergy status; Z79.84 Long term (current) use of oral hypoglycemic drugs; Z79.4 Long term (current) use of insulin; Z79.82 Long term (current) use of aspirin; Z86.73 Personal history of transient ischemic attack (TIA), and cerebral infarction without residual deficits; Z79.899 Other long term (current) drug therapy; Z90.49 Acquired absence of other specified parts of digestive tract; Z90.710 Acquired absence of both cervix and uterus
CPT/HCPCS: 36415; 36416; 70450; 71045; 74176; 80048; 80053; 81001; 84484; 85025; 96372; 96375; G0378; J0696; J1650; J2543; J3490; J7050